=== PATIENT | female | born 1990 | race Caucasian/White ===

== ENCOUNTER 2016-07-21 08:56 | Inpatient (IN) | payer OTHER ==
[~2016-07-21] VITALS: Ht 157.5 cm; Wt 86.6 kg
[2016-07-21] VITALS (8 sets, daily range): BP systolic 101–117; BP diastolic 55–69
[~2016-07-21 08:56] MED LIST: PRENATAL TABLE1 EACH PO; TYLENOL COLD H1 EAC5 PO
[2016-07-21 10:19] LABS: EOSINOPHIL (%) 1.9 % (0-5); EOSINOPHIL COUNT 0.2 K/uL (0-0.3); HEMATOCRIT 32.3 % (36.0-46.0); IMMATURE GRANULOCYTE (%) 0.6 % (0.0-0.7); IMMATURE GRANULOCYTE COUNT 0.1 K/uL; INSTRUMENT ABS NEUTROPHIL CT 8.5 K/uL; LYMPHOCYTE COUNT 1.5 K/uL (1.0-2.8); MCH 23.6 PG (29.0-34.0); MCHC 30.7 G/DL (30.0-36.0); MCV 77.1 FL (83-99); MEAN PLAT.VOLUME 11.5 uM^3 (9.5-12.4); MONOCYTE (%) 6.5 % (3-12); MONOCYTE COUNT 0.7 K/uL (0-0.8); NEUTROPHIL (%) 77.2 % (45-76); NEUTROPHIL COUNT 8.5 K/uL (1.8-6.4); PLATELET COUNT 185 K/uL (156-360); RBC DIS.WIDTH-SD 40.9 % (39-53); RED BLOOD COUNT 4.19 M/uL (3.80-5.20)
[2016-07-22 00:40] VITALS: BP 100/59
[2016-07-22 03:00] VITALS: BP 107/60
[2016-07-22 07:03] LABS: EOSINOPHIL (%) 0.7 % (0-5); EOSINOPHIL COUNT 0.1 K/uL (0-0.3); HEMATOCRIT 27.3 % (36.0-46.0); IMMATURE GRANULOCYTE (%) 0.7 % (0.0-0.7); IMMATURE GRANULOCYTE COUNT 0.1 K/uL; INSTRUMENT ABS NEUTROPHIL CT 10.9 K/uL; LYMPHOCYTE COUNT 1.6 K/uL (1.0-2.8); MCH 23.9 PG (29.0-34.0); MCHC 30.8 G/DL (30.0-36.0); MCV 77.6 FL (83-99); MEAN PLAT.VOLUME 11.7 uM^3 (9.5-12.4); MONOCYTE (%) 7.8 % (3-12); MONOCYTE COUNT 1.1 K/uL (0-0.8); NEUTROPHIL (%) 79.2 % (45-76); NEUTROPHIL COUNT 10.9 K/uL (1.8-6.4); PLATELET COUNT 195 K/uL (156-360); RBC DIS.WIDTH-SD 41.6 % (39-53); RED BLOOD COUNT 3.52 M/uL (3.80-5.20); WHITE BLOOD COUNT 13.8 K/uL (4.1-10.2)
[2016-07-22 14:40] VITALS: BP 115/76
[2016-07-22 19:00] VITALS: BP 100/61
[2016-07-22 23:00] VITALS: BP 125/77
[2016-07-23 03:00] VITALS: BP 110/65
[2016-07-23 07:41] VITALS: BP 102/64
[2016-07-23] MEDS ORDERED: FERROUS SULFAT325 MG PO (08:28)
[2016-07-23] MEDS ORDERED: IBUPROFEN800 MG PO (08:28)
[2016-07-23] MEDS ORDERED: ENDOCET 5-3251 EACH PO (08:28)
== END 2016-07-23 13:18 | disposition home or self-care (01) | DRG 766 ==
LOC: 2SOUTH 08:56 → 2WEST 09:19 → 2SOUTH 10:18 → 2WEST 07-23 13:18
PROVIDERS: Obstetrics & Gynecology
PROC: 10D00Z1 Extraction of Products of Conception, Low, Open Approach (ICD-10-PCS; principal; 2016-07-21)
DX: O34.211 Maternal care for low transverse scar from previous cesarean delivery (principal); N85.8 Other specified noninflammatory disorders of uterus; O26.03 Excessive weight gain in pregnancy, third trimester; Z3A.39 39 weeks gestation of pregnancy; Z37.0 Single live birth
CPT/HCPCS: 85025; 86900; 86901; J0690; J1100; J2274; J2405; J3010; J7120